=== PATIENT | female | born 1935 | race Caucasian/White ===

== ENCOUNTER 2016-07-01 09:42 | Inpatient (IN) | payer MEDICARE, BC ==
[~2016-07-01] VITALS: Ht 160 cm; Wt 90.7 kg
[2016-07-01] VITALS (9 sets, daily range): BP systolic 109–158; BP diastolic 48–65; PULSE 69–95; TEMP 96.6–98
[~2016-07-01 09:42] MED LIST: ALBUTEROL0.09 MG/A4 IH; ALBUTEROL0.83 MG/ML IH; ALDACTONE 25MG25 M1 PO; AMBIEN 10MG10 MG PO; AMBIEN 5MG TABLE5 MG PO; AMBIEN10 MG PO; AMIODARONE200 MG PO; AMOXICILLIN 50500 MG PO; APRESOLINE 25MG25 MG PO; ASPIRIN 32325 MG/TAB PO; ASPIRIN E.C. 8181 MG PO; ATIVAN 0.50.5 MG/TAB PO; BROVANA15 MCG/2 M IH; BYSTOLIC2.5 MG PO; CALCIUM + D 6001 TAB PO; CALCIUM 1200 601 SGL PO; CAPOTEN 12.512.5 MG PO; CAPOTEN 25MG25 MG; CARDI-OMEGA1000 MG PO; CARDIZEM CD 18180 MG PO; CENTRUM SILVER1 CTB PO; CENTRUM SILVER1 TA1 PO; CENTRUM1 TAB PO; CIPRO 250MG TA250 MG PO; COLACE 100100 MG/CAP PO; CORDARONE200 MG PO; CORDARONE200 MG/TAB PO; COREG 25MG25 MG/TAB PO; COREG12.5 MG PO; COREG6.25 MG PO; COUMADIN 1MG1 MG/TAB PO; COUMADIN 3MG3 MG/TAB PO; COUMADIN 5MG5 MG/TAB PO; COUMADIN3 MG PO; COUMADIN4 MG PO; DEMADEX 20MG20 M1 PO; DIGOXIN PO; DIGOXIN0.125 MG PO; DILTIAZEM180 MG PO; DIOVAN160 M1 PO; DIOVAN160 MG PO; DIOVAN80 MG PO; FLECAINIDE; FLECAINIDE PO; FLECAINIDE150 MG PO; FORTEO250 MCG/ML SC; FOSAMAX 70MG TA70 MG PO; FOSAMAX70 MG PO; FUROSEMIDE40 MG PO; GABAPENTIN300 MG PO; HCTZ 25MG25 MG PO; HYDROCHLOR50 MG PO; HYDROCHLOROTHIA25 MG PO; HYDROCORTISO28.35 G1 TP; IMODIUM 2MG CAPS2 MG PO; LANOXIN 0.120.125 MG PO; LASIX 20MG TABL20 MG PO; LEVOTHYROXIN0.112 MG PO; LEVOTHYROXIN0.125 MG PO; LEVOTHYROXINE PO; LIDOCAINE PATCH 5% ID; LIDODERM PATCH TP; LIPITOR 40MG TA40 MG PO; LIPITOR20 MG PO; LISINOPRIL; LISINOPRIL40 MG PO; LORAZEPAM0.5 MG PO; LORTAB 5/500 501 TAB PO; MAGNESIUM OXID400 MG PO; MILK OF MA400 MG/51 PO; MILK OF MAGNESI30 ML PO; MILLIPRED DP5 MG PO; MIRALAX PA17 GM/Dose PO; MULTAQ400 MG PO; MYLANTA 150 ML150 M1 PO; NITRO-DUR0.4 MG/PAT TD; NORCO 325 MG-51 TAB PO; NORCO 325 MG-7.1 TAB PO; OCCUVITE; OCUVITE PO; OCUVITE1 TA1 PO; OMEGA 31000 MG PO; OMEPRAZOLE40 MG PO; OXYCODONE15 MG PO; PAXIL 10MG10 MG PO; PAXIL 20MG20 MG PO; PAXIL10 MG PO; PERCOCET 325 MG1 TA2 PO; POTASSIUM20 MEQ PO; PRADAXA75 MG PO; PREDNISONE 10MG10 MG PO; PREDNISONE 5MG5 MG PO; PREDNISONE1 MG PO; PREDNISONE10 M1 PO; PREDNISONE10 MG PO; PREDNISONE20 MG PO; PRILOSEC 20MG20 MG PO; PRILOSEC40 MG PO; PRINIVIL40 MG PO; PROAIR HFA0.09 MG/AC IH; PROMETHAZINE12.5 M5 PO; PROTONIX 40MG T40 MG PO; RT ADVAIR HFA 1112 G IH; RT SPIRIVA18 MCG IH; SALINE SOLUTION3 M1 IH; SYNTHROID0.125 MG/T PO; THYROID; TUMS 5001250 MG PO; TYLENOL 500MG500 MG PO; ULTRAM 50MG TAB50 MG PO; VITAMIN; VITAMIN D50000 IU PO; VYTORIN; VYTORIN 10 MG-21 TAB PO; VYTORIN 10 MG-41 TAB PO; WARFARIN SODIU7.5 MG PO; WELLBUTRIN SR150 M1 PO; XARELTO20 MG PO; XOPENEX HF0.045 MG/A IH; ZESTRIL 20MG TA20 MG PO; ZITHROMAX 250M250 MG PO; ZOFRAN 4MG T4 MG/TAB PO; [UNRECOGNIZED DRUG - CODE] PO
[2016-07-01 10:25] LABS: BASO # 0.1 (0.0-0.2); BASO % 0.6 % (0.0-2.0); EOS # 0.3 (0.0-0.7); EOS % 3.4 % (0-4.0); GRAN % 73.4 % (42.2-75.2); HEMATOCRIT 38.2 % (37.0-47.0); HEMOGLOBIN 12.7 g/dl (12.5-16.0); LYMPH # 1.3 (1.2-3.4); LYMPH % 13.4 % (20.0-51.0); MEAN CELL VOLUME 92 fl (80.0-100.0); MEAN CORPUSCULAR HEMOGLOBIN 31 pg (27.0-31.0); MEAN CORPUSCULAR HGB CONC 33 g/dl (33.0-37.0); MONO # 0.8 (0.1-0.6); MONO % 8.1 % (1.7-9.3); PLATELET COUNT 252 K/mm3 (130-400); RED BLOOD COUNT 4.16 M/mm3 (4.10-5.30); REDCELL DISTRIBUTION WIDTH-CV 14.2 % (11.5-14.5); WHITE BLOOD COUNT 9.5 K/mm3 (4.8-10.8)
[2016-07-01 10:37] LABS: ADJUSTED CALCIUM 9.6 mg/dL (8.4-10.2); ALBUMIN 3.5 gm/dL (3.5-5.0); BILIRUBIN,TOTAL 0.9 mg/dL (0.0-1.0); CALCIUM 9.2 mg/dL (8.4-10.2); CREATININE, serum 1.39 mg/dL (0.52-1.25); POTASSIUM 5.1 mmol/L (3.4-5.0); TOTAL PROTEIN 6.3 gm/dL (6.4-8.2)
[2016-07-01] MEDS ORDERED: ALMACONE 360 M360 ML PO (13:02)
[2016-07-01] MEDS ORDERED: MILK OF MA400 MG/52 PO (13:03)
[2016-07-01] MEDS ORDERED: DEMADEX 20MG20 M1 PO (13:07)
[2016-07-01] MEDS ORDERED: ZESTRIL2.5 MG PO (13:16)
[2016-07-01] MEDS ORDERED: FOSAMAX 70MG TA70 MG PO (13:17)
[2016-07-01] MEDS ORDERED: ELIQUIS 5MG PO (13:17)
[2016-07-01] MEDS ORDERED: NEURONTIN300 MG/CAP PO (13:18)
[2016-07-01] MEDS ORDERED: MELAT3MGTAB PO (13:23)
[2016-07-01] MEDS ORDERED: XOPENEX HF0.045 MG/A IH (13:23)
[2016-07-01 15:40] LABS: INR 1.2 (0.8-3.0); PROTHROMBIN TIME 13.8 SECONDS (9.7-12.8)
[2016-07-02 01:07] VITALS: BP 118/42; PULSE 68; TEMP 97.2
[2016-07-02 05:28] VITALS: BP 120/47; PULSE 73; TEMP 97.9
[2016-07-02 08:53] VITALS: BP 104/46; PULSE 71; TEMP 97.7
[2016-07-02 09:10] LABS: CREATININE, serum 1.48 mg/dL (0.52-1.25)
[2016-07-02 13:23] VITALS: BP 91/43; PULSE 73; TEMP 97.8
[2016-07-02 17:53] VITALS: BP 82/63; PULSE 89; TEMP 98.2
[2016-07-02 21:21] VITALS: BP 84/64; PULSE 71; TEMP 99
[2016-07-03] VITALS (8 sets, daily range): BP systolic 80–110; BP diastolic 37–73; PULSE 60–90; TEMP 97.5–100.5
[2016-07-03 07:31] LABS: CREATININE, serum 2.28 mg/dL (0.52-1.25); POTASSIUM 4.6 mmol/L (3.4-5.0)
[2016-07-03 10:47] LABS: HEMATOCRIT 29.7 % (37.0-47.0); HEMOGLOBIN 9.5 g/dl (12.5-16.0)
[2016-07-03 12:49] LABS: PH 5 (5-8); SQUAMOUS EPITHELIAL 0-2 /hpf; URINE APPEARANCE Cloudy; URINE BACTERIA Rare /hpf; URINE BILIRUBIN Negative (NEGATIVE); URINE BLOOD 2+ (NEGATIVE); URINE COLOR Yellow; URINE GLUCOSE Negative (NEGATIVE); URINE KETONE Negative (NEGATIVE); URINE UROBILINOGEN Negative (NEGATIVE); URINE WBC >50 /hpf
[2016-07-04 06:10] VITALS: BP 120/61; PULSE 73; TEMP 99.1
[2016-07-04 07:50] LABS: BASO % 0.3 % (0.0-2.0); EOS # 0.5 (0.0-0.7); EOS % 4.9 % (0-4.0); GRAN # 7.1 (1.4-6.5); LYMPH # 1.2 (1.2-3.4); LYMPH % 11.8 % (20.0-51.0); MEAN CELL VOLUME 93 fl (80.0-100.0); MEAN CORPUSCULAR HGB CONC 33 g/dl (33.0-37.0); MEAN PLATELET VOLUME 10.8 fl (7.4-10.4); MONO # 1.1 (0.1-0.6); MONO % 11.1 % (1.7-9.3); PLATELET COUNT 153 K/mm3 (130-400); RED BLOOD COUNT 2.92 M/mm3 (4.10-5.30); REDCELL DISTRIBUTION WIDTH-CV 14.2 % (11.5-14.5); WHITE BLOOD COUNT 10.1 K/mm3 (4.8-10.8)
[2016-07-04 07:58] LABS: CALCIUM 8.1 mg/dL (8.4-10.2); CREATININE, serum 1.58 mg/dL (0.52-1.25); POTASSIUM 4.7 mmol/L (3.4-5.0)
[2016-07-04 08:00] LABS: HEMATOCRIT 27.1 % (37.0-47.0); HEMOGLOBIN 8.9 g/dl (12.5-16.0); MEAN CORPUSCULAR HEMOGLOBIN 30 pg (27.0-31.0)
[2016-07-04 09:21] VITALS: BP 119/43; PULSE 73; TEMP 98.1
[2016-07-04 13:08] VITALS: BP 98/36; PULSE 64; TEMP 97.9
[2016-07-04 17:44] VITALS: BP 118/50; PULSE 63; TEMP 98.2
[2016-07-04 21:48] VITALS: BP 123/49; PULSE 59; TEMP 97.7
[2016-07-05 01:08] VITALS: BP 106/47; PULSE 78; TEMP 98.6
[2016-07-05 05:04] VITALS: BP 145/59; PULSE 74; TEMP 98.9
[2016-07-05 08:32] LABS: CALCIUM 8.5 mg/dL (8.4-10.2); CREATININE, serum 1.27 mg/dL (0.52-1.25); POTASSIUM 4.7 mmol/L (3.4-5.0)
[2016-07-05 09:25] VITALS: BP 110/40; PULSE 68; TEMP 97.9
[2016-07-05 10:37] LABS: MEAN CELL VOLUME 94 fl (80.0-100.0); MEAN CORPUSCULAR HGB CONC 32 g/dl (33.0-37.0); MEAN PLATELET VOLUME 11.3 fl (7.4-10.4); PLATELET COUNT 188 K/mm3 (130-400); RED BLOOD COUNT 2.81 M/mm3 (4.10-5.30); REDCELL DISTRIBUTION WIDTH-CV 14.3 % (11.5-14.5); WHITE BLOOD COUNT 8.8 K/mm3 (4.8-10.8)
[2016-07-05 10:40] LABS: HEMATOCRIT 26.3 % (37.0-47.0); HEMOGLOBIN 8.5 g/dl (12.5-16.0); MEAN CORPUSCULAR HEMOGLOBIN 30 pg (27.0-31.0)
[2016-07-05] MEDS ORDERED: FERROUS SU325 MG/TAB PO (10:59)
[2016-07-05] MEDS ORDERED: NORCO 325 MG-7.1 TAB PO (11:06)
[2016-07-05 13:33] VITALS: BP 107/53; PULSE 85; TEMP 98.1
[2016-07-05 14:54] VITALS: BP 107/53; PULSE 85; TEMP 98.1
== END 2016-07-05 15:50 | DRG 493 ==
LOC: COL.ER 09:42 → SURG 12:05
PROVIDERS: Emergency Medicine; Internal Medicine; Orthopaedic Surgery Sports Medicine; Physician Assistant
PROC: 0QSG04Z Reposition Right Tibia with Internal Fixation Device, Open Approach (ICD-10-PCS; 2016-07-01)
PROC: 0QSJ04Z Reposition Right Fibula with Internal Fixation Device, Open Approach (ICD-10-PCS; principal; 2016-07-01 17:00)
DX: S82.841A Displaced bimalleolar fracture of right lower leg, initial encounter for closed fracture (principal); I13.0 Hypertensive heart and chronic kidney disease with heart failure and stage 1 through stage 4 chronic kidney disease, or unspecified chronic kidney disease; N39.0 Urinary tract infection, site not specified; M97.11XA Periprosthetic fracture around internal prosthetic right knee joint, initial encounter; I50.22 Chronic systolic (congestive) heart failure; N17.9 Acute kidney failure, unspecified; E87.1 Hypo-osmolality and hyponatremia; D62 Acute posthemorrhagic anemia; S82.831A Other fracture of upper and lower end of right fibula, initial encounter for closed fracture; B96.5 Pseudomonas (aeruginosa) (mallei) (pseudomallei) as the cause of diseases classified elsewhere; I25.10 Atherosclerotic heart disease of native coronary artery without angina pectoris; J44.9 Chronic obstructive pulmonary disease, unspecified; W01.0XXA Fall on same level from slipping, tripping and stumbling without subsequent striking against object, initial encounter; I48.91 Unspecified atrial fibrillation; N18.9 Chronic kidney disease, unspecified; Z95.2 Presence of prosthetic heart valve; Z79.01 Long term (current) use of anticoagulants
CPT/HCPCS: 99223; 99232-AI; 99233-AI; 99239; A9284; C1713; J0690; J0696; J2250; J2270; J2370; J2405; J2704; J3010; J7030

== ENCOUNTER → 2016-07-06 | Outpatient (CLI) | payer MEDICARE, BC ==
[~2016-07-06] MED LIST changes: +ALMACONE 360 M360 ML PO; +CALTRATE-600 W600 MG PO; +DULCOLAX S10 MG/SUPP RC; +ELIQUIS 5MG PO; +FERROUS SU325 MG/TAB PO; +IMODIUM A-D2 MG PO; +MELAT3MGTAB PO; +MILK OF MA400 MG/52 PO; +NEURONTIN300 MG/CAP PO; +TYLENOL 325MG325 MG PO; +TYLENOL SU650 MG/SUP RC; +ZESTRIL2.5 MG PO
[2016-07-06 11:25] LABS: CALCIUM 8.9 mg/dL (8.4-10.2); CREATININE, serum 1.37 mg/dL (0.52-1.25); MEAN CELL VOLUME 93 fl (80.0-100.0); MEAN CORPUSCULAR HGB CONC 33 g/dl (33.0-37.0); MEAN PLATELET VOLUME 11.1 fl (7.4-10.4); PLATELET COUNT 254 K/mm3 (130-400); POTASSIUM 5.1 mmol/L (3.4-5.0); RED BLOOD COUNT 2.85 M/mm3 (4.10-5.30); REDCELL DISTRIBUTION WIDTH-CV 14.3 % (11.5-14.5); WHITE BLOOD COUNT 10.2 K/mm3 (4.8-10.8)
[2016-07-06 11:30] LABS: ADD PATHOLOGY DIFF REVIEW NO; HEMATOCRIT 26.6 % (37.0-47.0); HEMOGLOBIN 8.7 g/dl (12.5-16.0); MEAN CORPUSCULAR HEMOGLOBIN 31 pg (27.0-31.0)
[2016-07-06 12:53] LABS: BAND 9 % (0-10); BASOPHIL 3 % (0-2); EOSINOPHIL 4 % (0-4); METAMYELOCYTE 2 % (0-0); MYELOCYTE 2 % (0-0); NEUTROPHILS 48 % (42.0-75.2); PLATELET ESTIMATE NORMAL (NORMAL); TOTAL CELLS COUNTED 100
[2016-07-06 12:54] LABS: ANISOCYTOSIS 1+; OVALOCYTES 1+; POLYCHROMASIA 1+
== END ==
LOC: ZCOL.LAB 09:58
PROVIDERS: Internal Medicine
DX: E87.1 Hypo-osmolality and hyponatremia (principal); N39.0 Urinary tract infection, site not specified

== ENCOUNTER 2016-07-12 09:55 | Inpatient (IN) | payer MEDICARE, BC ==
[~2016-07-12] VITALS: Ht 160 cm; Wt 88.9 kg
[~2016-07-12 09:55] MED LIST changes: -CALTRATE-600 W600 MG PO; -DULCOLAX S10 MG/SUPP RC; -IMODIUM A-D2 MG PO; -TYLENOL 325MG325 MG PO; -TYLENOL SU650 MG/SUP RC
[2016-07-12] MEDS ORDERED: DULCOLAX S10 MG/SUPP RC (11:14)
[2016-07-12] MEDS ORDERED: TYLENOL SU650 MG/SUP RC (11:15)
[2016-07-12] MEDS ORDERED: IMODIUM A-D2 MG PO (11:18)
[2016-07-12] MEDS ORDERED: TYLENOL 325MG325 MG PO ×2 (11:18→12:09)
[2016-07-12] MEDS ORDERED: FERROUS SU325 MG/TAB PO (11:19)
[2016-07-12] MEDS ORDERED: MIRALAX PA17 GM/Dose PO (11:21)
[2016-07-12] MEDS ORDERED: DEMADEX 20MG20 M1 PO (11:22)
[2016-07-12] MEDS ORDERED: NORCO 325 MG-7.1 TAB PO (11:23)
[2016-07-12 13:36] LABS: MEAN CELL VOLUME 95 fl (80.0-100.0); MEAN CORPUSCULAR HGB CONC 32 g/dl (33.0-37.0); MEAN PLATELET VOLUME 9.2 fl (7.4-10.4); PLATELET COUNT 375 K/mm3 (130-400); REDCELL DISTRIBUTION WIDTH-CV 16.5 % (11.5-14.5); WHITE BLOOD COUNT 11.1 K/mm3 (4.8-10.8)
[2016-07-12 13:39] LABS: ADD PATHOLOGY DIFF REVIEW NO; HEMATOCRIT 29.4 % (37.0-47.0); HEMOGLOBIN 9.5 g/dl (12.5-16.0); MEAN CORPUSCULAR HEMOGLOBIN 31 pg (27.0-31.0)
[2016-07-12 15:20] VITALS: BP 118/56; PULSE 72; TEMP 98
[2016-07-12 18:08] LABS: BAND 4 % (0-10); EOSINOPHIL 1 % (0-4); METAMYELOCYTE 1 % (0-0); NEUTROPHILS 68 % (42.0-75.2); TOTAL CELLS COUNTED 100
[2016-07-12 18:09] LABS: ANISOCYTOSIS 2+; HYPOCHROMIA 3+; POLYCHROMASIA 1+
[2016-07-12 20:25] VITALS: BP 128/59; PULSE 55; TEMP 97.6
[2016-07-12 23:38] VITALS: BP 100/87; PULSE 71; TEMP 97.7
[2016-07-13 02:56] VITALS: BP 112/42; PULSE 69; TEMP 97.4
[2016-07-13 07:36] LABS: CALCIUM 8.8 mg/dL (8.4-10.2); CREATININE, serum 1.42 mg/dL (0.52-1.25); POTASSIUM 3.9 mmol/L (3.4-5.0)
[2016-07-13 09:13] VITALS: BP 112/90; PULSE 71; TEMP 97.8
[2016-07-13 12:13] VITALS: BP 118/37; PULSE 71; TEMP 98
[2016-07-13 16:21] VITALS: BP 122/48; PULSE 68; TEMP 98.4
[2016-07-13 20:23] VITALS: BP 119/42; PULSE 69; TEMP 98.2
[2016-07-14 00:11] VITALS: BP 114/50; PULSE 66; TEMP 98.6
[2016-07-14 03:32] VITALS: BP 101/48; PULSE 68; TEMP 97.8
[2016-07-14 07:49] LABS: CALCIUM 8.7 mg/dL (8.4-10.2); CREATININE, serum 1.65 mg/dL (0.52-1.25); POTASSIUM 3.6 mmol/L (3.4-5.0)
[2016-07-14 08:29] VITALS: BP 103/45; PULSE 69; TEMP 97.6
[2016-07-14 11:36] VITALS: BP 112/48; PULSE 71; TEMP 98.4
[2016-07-14 16:10] VITALS: BP 105/80; PULSE 74; TEMP 7.8
[2016-07-14 20:06] VITALS: BP 135/58; PULSE 71; TEMP 98.6
[2016-07-15] VITALS (554 sets, daily range): BP systolic 106–134; BP diastolic 40–96; PULSE 69–92; TEMP 97.7–98.3; O2SAT 84–100
[2016-07-15 06:24] LABS: CALCIUM 8.4 mg/dL (8.4-10.2); CREATININE, serum 1.54 mg/dL (0.52-1.25); POTASSIUM 3.8 mmol/L (3.4-5.0)
[2016-07-15 10:22] LABS: HEMATOCRIT 34.1 % (37.0-47.0)
[2016-07-15 10:54] LABS: HEMOGLOBIN 11.1 g/dl (12.5-16.0)
[2016-07-16] VITALS (1136 sets, daily range): BP systolic 111–137; BP diastolic 45–66; PULSE 69–70; TEMP 97.5–97.9; O2SAT 82–100
[2016-07-16 06:16] LABS: CALCIUM 8.6 mg/dL (8.4-10.2); CREATININE, serum 1.67 mg/dL (0.52-1.25); POTASSIUM 3.8 mmol/L (3.4-5.0)
[2016-07-17] VITALS (911 sets, daily range): BP systolic 105–122; BP diastolic 43–57; PULSE 60–69; TEMP 97.4–97.7; O2SAT 78–100
[2016-07-17 06:40] LABS: CALCIUM 8.8 mg/dL (8.4-10.2); CREATININE, serum 1.59 mg/dL (0.52-1.25); POTASSIUM 3.8 mmol/L (3.4-5.0)
[2016-07-17] MEDS ORDERED: CALTRATE-600 W600 MG PO (15:07)
[2016-07-17] MEDS ORDERED: DEMADEX 20MG20 M1 PO (15:08)
== END 2016-07-17 16:25 | DRG 293 ==
LOC: MEDICAL 09:55 → IMCU 07-15 08:25 → ICU 07-15 18:35
PROVIDERS: Internal Medicine Interventional Cardiology
PROC: 02HV33Z Insertion of Infusion Device into Superior Vena Cava, Percutaneous Approach (ICD-10-PCS; principal; 2016-07-12)
DX: I11.0 Hypertensive heart disease with heart failure (principal); I50.43 Acute on chronic combined systolic (congestive) and diastolic (congestive) heart failure; Z95.810 Presence of automatic (implantable) cardiac defibrillator; I48.0 Paroxysmal atrial fibrillation; Z95.2 Presence of prosthetic heart valve; D64.9 Anemia, unspecified; I25.10 Atherosclerotic heart disease of native coronary artery without angina pectoris
CPT/HCPCS: C1751; J1265; J1644

== ENCOUNTER → 2016-08-08 | Outpatient (CLI) | payer MEDICARE, BC ==
[~2016-08-08] MED LIST changes: +CALTRATE-600 W600 MG PO; +DULCOLAX S10 MG/SUPP RC; +IMODIUM A-D2 MG PO; +TYLENOL 325MG325 MG PO; +TYLENOL SU650 MG/SUP RC
== END ==
LOC: COL.RAD 09:50
DX: S82.51XD Displaced fracture of medial malleolus of right tibia, subsequent encounter for closed fracture with routine healing (principal); X58.XXXD Exposure to other specified factors, subsequent encounter

== ENCOUNTER → 2016-08-13 | Outpatient (REF) | LOC: ZAIV 06:20 | DX: Z09 Encounter for follow-up examination after completed treatment for conditions other than malignant neoplasm (principal) ==

== ENCOUNTER → 2017-03-11 | Outpatient (CLI) | payer MEDICARE, BC | LOC: MC.RAD 11:00 | DX: Z12.31 Encounter for screening mammogram for malignant neoplasm of breast (principal) ==

== ENCOUNTER 2017-04-19 12:31 | Day surgery (SDC) | payer MEDICARE, BC ==
[2009-05-02 09:24] VITALS: BP 142/90
[2017-04-19] VITALS (7 sets, daily range): BP systolic 98–115; BP diastolic 39–63; PULSE 68–72; TEMP 96.6–98.1
[~2017-04-19] VITALS: Ht 167.6 cm; Wt 84.1 kg
[2017-04-19] MEDS ORDERED: AMBIEN 5MG TABLE5 MG PO (13:17)
[2017-04-19] MEDS ORDERED: DEMADEX 20MG20 M1 PO (13:18)
[2017-04-19] MEDS ORDERED: SYNTHROID0.112 MG/T PO (13:21)
[2017-04-19] MEDS ORDERED: ATARAX 25MG25 MG/TAB PO (13:24)
[2017-04-19] MEDS ORDERED: AMOXICILLIN 50500 MG PO (13:25)
[2017-04-19] MEDS ORDERED: ATROVENT I0.2 MG/1 M IH (13:26)
[2017-04-19] MEDS ORDERED: ATIVAN 0.50.5 MG/TAB PO (13:26)
[2017-04-19] MEDS ORDERED: VOLTAREN GEL 1%1 TU TP (13:26)
[2017-04-19] MEDS ORDERED: GOOD SENSE ANTI-IT1% TP (13:27)
[2017-04-19] MEDS ORDERED: MUCINEX 60600 MG/TA1 PO (13:27)
[2017-04-19] MEDS ORDERED: ICY HOT 7.6%-291 STI TP (13:27)
[2017-04-19] MEDS ORDERED: ROBITUSSIN A-C S1 M1 PO (13:28)
[2017-04-19] MEDS ORDERED: PREPH RC (13:28)
[2017-04-19] MEDS ORDERED: TYLENOL 500MG500 MG PO (13:29)
== END 2017-04-19 16:30 | disposition home or self-care (01) ==
LOC: SDCO 12:31
DX: S82.841D Displaced bimalleolar fracture of right lower leg, subsequent encounter for closed fracture with routine healing (principal); D64.9 Anemia, unspecified; M19.90 Unspecified osteoarthritis, unspecified site; I13.0 Hypertensive heart and chronic kidney disease with heart failure and stage 1 through stage 4 chronic kidney disease, or unspecified chronic kidney disease; N18.9 Chronic kidney disease, unspecified; I50.9 Heart failure, unspecified; I25.10 Atherosclerotic heart disease of native coronary artery without angina pectoris; I48.91 Unspecified atrial fibrillation; J44.9 Chronic obstructive pulmonary disease, unspecified; E78.00 Pure hypercholesterolemia, unspecified; E03.9 Hypothyroidism, unspecified; F41.9 Anxiety disorder, unspecified; G47.33 Obstructive sleep apnea (adult) (pediatric); G89.18 Other acute postprocedural pain; Z79.01 Long term (current) use of anticoagulants; Z95.810 Presence of automatic (implantable) cardiac defibrillator; Z96.653 Presence of artificial knee joint, bilateral; Z95.0 Presence of cardiac pacemaker; Z90.5 Acquired absence of kidney; Z90.710 Acquired absence of both cervix and uterus; Z85.528 Personal history of other malignant neoplasm of kidney; Z86.73 Personal history of transient ischemic attack (TIA), and cerebral infarction without residual deficits; Z80.0 Family history of malignant neoplasm of digestive organs; Z82.49 Family history of ischemic heart disease and other diseases of the circulatory system
CPT/HCPCS: J0690; J1100; J2250; J2405; J2704; J3010; J7030

== ENCOUNTER 2017-06-11 10:34 | Inpatient (IN) | payer MEDICARE, BC ==
[~2017-06-11] VITALS: Ht 165.1 cm; Wt 86.6 kg
[~2017-06-11 10:34] MED LIST changes: +ATARAX 25MG25 MG/TAB PO; +ATROVENT I0.2 MG/1 M IH; +GOOD SENSE ANTI-IT1% TP; +ICY HOT 7.6%-291 STI TP; +MUCINEX 60600 MG/TA1 PO; +PREPH RC; +ROBITUSSIN A-C S1 M1 PO; +SYNTHROID0.112 MG/T PO; +VOLTAREN GEL 1%1 TU TP
[2017-06-16 14:34] VITALS: BP 127/62; PULSE 73; TEMP 97.4
[2017-06-16] MEDS ORDERED: MYRBETR25MG PO (15:00)
[2017-06-16 19:03] LABS: HEMATOCRIT 41.5 % (37.0-47.0); HEMOGLOBIN 14.1 g/dl (12.5-16.0); MEAN CELL VOLUME 92 fl (80.0-100.0); MEAN CORPUSCULAR HEMOGLOBIN 31 pg (27.0-31.0); MEAN CORPUSCULAR HGB CONC 34 g/dl (33.0-37.0); MEAN PLATELET VOLUME 10.5 fl (7.4-10.4); PLATELET COUNT 220 K/mm3 (130-400)
[2017-06-16 19:13] LABS: CALCIUM 9.3 mg/dL (8.4-10.2); CREATININE, serum 2.01 mg/dL (0.52-1.25); POTASSIUM 4.2 mmol/L (3.4-5.0)
[2017-06-16 19:38] LABS: TROPONIN-I 0.018 ng/mL (0.000-0.034)
[2017-06-16 20:57] VITALS: BP 112/51; PULSE 66; TEMP 98.6
[2017-06-16 21:50] LABS: INR 1.5 (0.8-3.0); PROTHROMBIN TIME 17.2 SECONDS (9.7-12.8)
[2017-06-17] VITALS (12 sets, daily range): BP systolic 96–128; BP diastolic 45–73; PULSE 50–82; TEMP 9
[2017-06-17 07:28] LABS: CALCIUM 9.5 mg/dL (8.4-10.2); CREATININE, serum 1.94 mg/dL (0.52-1.25)
[2017-06-17 07:29] LABS: POTASSIUM 3.8 mmol/L (3.4-5.0)
[2017-06-18 04:00] VITALS: BP 97/50; PULSE 72; TEMP 97.8
[2017-06-18 07:16] LABS: HEMATOCRIT 32.9 % (37.0-47.0); HEMOGLOBIN 11.2 g/dl (12.5-16.0)
[2017-06-18 07:29] VITALS: BP 107/56; PULSE 70; TEMP 97.2
[2017-06-18 11:31] VITALS: BP 101/46; PULSE 69; TEMP 98.1
[2017-06-18 15:32] VITALS: BP 84/34; PULSE 69; TEMP 97.8
[2017-06-18 19:24] VITALS: BP 96/45; PULSE 69; TEMP 99.1
[2017-06-18 23:55] VITALS: BP 96/34; PULSE 58; TEMP 98.5
[2017-06-19 04:00] VITALS: BP 103/44; PULSE 69; TEMP 98.7
[2017-06-19 07:02] LABS: HEMATOCRIT 30.6 % (37.0-47.0); HEMOGLOBIN 10.3 g/dl (12.5-16.0)
[2017-06-19 07:54] VITALS: BP 93/46; PULSE 73; TEMP 98
[2017-06-19] MEDS ORDERED: ELIQUIS 2.5 PO (08:36)
[2017-06-19 09:47] VITALS: BP 93/46; PULSE 73; TEMP 98
[2017-06-19 11:30] VITALS: BP 92/43; PULSE 69; TEMP 97.5
[2017-06-19] MEDS ORDERED: NORCO 325 MG-7.1 TAB PO (13:59)
[2017-06-19] MEDS ORDERED: ULTRAM 50MG TAB50 MG PO (14:00)
[2017-06-19] MEDS ORDERED: CELEBREX 200MG200 MG PO (14:00)
== END 2017-06-19 14:40 | disposition home or self-care (01) | DRG 516 ==
LOC: JCC 06-16 14:19
PROVIDERS: Internal Medicine Interventional Cardiology; Orthopaedic Surgery; Physician Assistant
PROC: 0SU Lower Joints, Supplement (ICD-10-PCS; principal; 2017-06-17 07:30)
DX: M19.072 Primary osteoarthritis, left ankle and foot (principal); I50.42 Chronic combined systolic (congestive) and diastolic (congestive) heart failure; I48.2 Chronic atrial fibrillation; Z95.810 Presence of automatic (implantable) cardiac defibrillator; Z96.653 Presence of artificial knee joint, bilateral; Z95.2 Presence of prosthetic heart valve
CPT/HCPCS: A4314; A9284; C1713; C1776; J0690; J1100; J1170; J1644; J2270; J2405; J2704; J3010

== ENCOUNTER → 2017-06-24 | Outpatient (REF) ==
[~2017-06-24] MED LIST changes: +CELEBREX 200MG200 MG PO; +ELIQUIS 2.5 PO; +MYRBETR25MG PO
[2017-06-24 08:48] LABS: CALCIUM 9.1 mg/dL (8.4-10.2); CREATININE, serum 2.02 mg/dL (0.52-1.25); POTASSIUM 5.1 mmol/L (3.4-5.0)
== END ==
LOC: ZCOL.LAB 08:31
PROVIDERS: Internal Medicine
DX: I50.22 Chronic systolic (congestive) heart failure (principal)

== ENCOUNTER → 2017-06-27 | Outpatient (CLI) | payer MEDICARE, BC ==
[2017-06-27 17:07] LABS: MEAN CELL VOLUME 94 fl (80.0-100.0); MEAN CORPUSCULAR HGB CONC 34 g/dl (33.0-37.0); MEAN PLATELET VOLUME 9.6 fl (7.4-10.4); PLATELET COUNT 273 K/mm3 (130-400); RED BLOOD COUNT 2.97 M/mm3 (4.10-5.30); REDCELL DISTRIBUTION WIDTH-CV 13.1 % (11.5-14.5)
[2017-06-27 17:15] LABS: HEMATOCRIT 27.9 % (37.0-47.0); HEMOGLOBIN 9.5 g/dl (12.5-16.0); MEAN CORPUSCULAR HEMOGLOBIN 32 pg (27.0-31.0)
[2017-06-27 17:16] LABS: CREATININE, serum 2.38 mg/dL (0.52-1.25); POTASSIUM 5.7 mmol/L (3.4-5.0)
== END ==
LOC: COL.RAD 16:27
PROVIDERS: Internal Medicine Interventional Cardiology
DX: I51.7 Cardiomegaly (principal); R06.02 Shortness of breath; Z95.810 Presence of automatic (implantable) cardiac defibrillator; Z95.2 Presence of prosthetic heart valve

== ENCOUNTER → 2018-06-17 | Outpatient (CLI) | payer MEDICARE, BC | LOC: MC.RAD 10:20 | DX: Z12.31 Encounter for screening mammogram for malignant neoplasm of breast (principal) ==

== ENCOUNTER 2018-11-10 22:22 | Emergency (ER) | payer MEDICARE, BC ==
[2009-05-02 09:24] VITALS: BP 142/90
[2018-11-10 22:39] VITALS: TEMP 98.1
[2018-11-10 23:47] LABS: BASO # 0.1 (0.0-0.2); BASO % 0.5 % (0.0-2.0); EOS # 0.4 (0.0-0.7); EOS % 2.5 % (0-4.0); GRAN # 12.1 (1.4-6.5); GRAN % 82.8 % (42.2-75.2); HEMATOCRIT 42.6 % (37.0-47.0); LYMPH # 1.1 (1.2-3.4); LYMPH % 7.2 % (20.0-51.0); MEAN CELL VOLUME 91 fl (80.0-100.0); MEAN CORPUSCULAR HEMOGLOBIN 30 pg (27.0-31.0); MEAN CORPUSCULAR HGB CONC 33 g/dl (33.0-37.0); MEAN PLATELET VOLUME 11.2 fl (7.4-10.4); MONO # 0.9 (0.1-0.6); MONO % 5.8 % (1.7-9.3); PLATELET COUNT 224 K/mm3 (130-400); RED BLOOD COUNT 4.67 M/mm3 (4.10-5.30)
[2018-11-11 00:02] LABS: ALANINE AMINOTRANSFERASE < 6 U/L (9-52); ALBUMIN 3.8 gm/dL (3.5-5.0); ALKALINE PHOSPHATASE 109 U/L (50-136); ANION GAP 10 mmol/L (7-16); AST,SGOT 26 U/L (15-37); BILIRUBIN,TOTAL 0.6 mg/dL (0.0-1.0); BLOOD UREA NITROGEN 24 mg/dL (7-17); CALCIUM 9.4 mg/dL (8.4-10.2); CARBON DIOXIDE 33 mmol/L (22-30); CHLORIDE 99 mmol/L (98-107); GLUCOSE 125 mg/dL (74-106); LIPASE 74 U/L (23-300); POTASSIUM 3.8 mmol/L (3.4-5.0); SODIUM 141 mmol/L (137-145); TOTAL PROTEIN 7.3 gm/dL (6.4-8.2)
[2018-11-11 00:11] LABS: TROPONIN-I 0.013 ng/mL (0.000-0.035)
[2018-11-11 00:31] LABS: COLLECTION METHOD CLEAN CATCH
[2018-11-11 00:39] LABS: PH 7 (5-8); SQUAMOUS EPITHELIAL 0-2 /hpf; URINE APPEARANCE Clear; URINE BACTERIA None Seen /hpf; URINE BILIRUBIN Negative (NEGATIVE); URINE BLOOD Negative (NEGATIVE); URINE COLOR Straw; URINE GLUCOSE Negative (NEGATIVE); URINE KETONE Negative (NEGATIVE); URINE LEUKOCYTE ESTERASE Trace (NEGATIVE); URINE NITRATE Negative (NEGATIVE); URINE PROTEIN(semi-quant) Negative (NEGATIVE); URINE RBC 0-2 /hpf; URINE UROBILINOGEN Negative (NEGATIVE)
[2018-11-11] MEDS ORDERED: CEPHALEXIN500 M1 PO (03:08)
[2018-11-11 03:09] VITALS: BP 152/75; PULSE 85
== END 2018-11-11 03:20 | disposition home or self-care (01) ==
LOC: COL.ER 22:22
PROVIDERS: Emergency Medicine
DX: R10.13 Epigastric pain (principal); I11.0 Hypertensive heart disease with heart failure; R11.0 Nausea; I50.9 Heart failure, unspecified; I48.91 Unspecified atrial fibrillation; E03.9 Hypothyroidism, unspecified; Z95.0 Presence of cardiac pacemaker; Z79.01 Long term (current) use of anticoagulants

== ENCOUNTER → 2020-01-18 | Outpatient (CLI) | payer MEDICARE, BC ==
[~2020-01-18] MED LIST changes: +CEPHALEXIN500 M1 PO
== END ==
LOC: ZCOL.LAB 16:56
DX: Z20.828 Contact with and (suspected) exposure to other viral communicable diseases (principal)

== ENCOUNTER 2023-02-25 15:16 | Inpatient (IN) | payer MEDICARE, BC ==
[~2023-02-25] VITALS: Ht 167.6 cm; Wt 84.3 kg
[~2023-02-25 15:16] MED LIST changes: +ATIVAN 1MG T1 MG/TAB PO; -BYSTOLIC2.5 MG PO; +BYSTOLIC5 MG PO; -GOOD SENSE ANTI-IT1% TP; +HYDROCORTISONE30 G3 TP; -MYRBETR25MG PO; +MYRBETR50MG PO; -PAXIL 20MG20 MG PO; +PAXIL 30MG30 MG PO; -SYNTHROID0.112 MG/T PO
--- NOTE | 2023-02-25 18:14 | NUR ---
PATIENT ADMITTED TO MEDICAL UNIT. ADMISSION INTAKE AND ASSESSMENT COMPLETED. MED REC IN PLACE. PATIENT ORIENTED TO ROOM, CALL LIGHT WITHIN REACH, BED ALARMS IN PLACE. CURRENTLY ON 2L OXYGEN VIA NC. WILL CONTINUE TO MONITOR.
[2023-02-25 18:33] VITALS: BP 97/45; PULSE 78; TEMP 97.8
[2023-02-25] MEDS ORDERED: ANORO IH (18:48)
[2023-02-25] MEDS ORDERED: ZYLOPRIM 100MG100 MG PO (18:48)
[2023-02-25] MEDS ORDERED: ELIQUIS 5MG PO (18:49)
[2023-02-25] MEDS ORDERED: ENTRESTO 24 MG1 EACH PO (18:51)
[2023-02-25 19:14] LABS: INR 1.6 (0.8-3.0); PROTHROMBIN TIME 17.6 SECONDS (9.7-12.8)
[2023-02-25 19:26] LABS: CALCIUM 9.3 mg/dL (8.4-10.2); CREATININE, serum 2.1 mg/dL (0.57-1.11); POTASSIUM 3.3 mmol/L (3.5-4.5)
[2023-02-25 19:33] VITALS: BP 97/85; PULSE 87; TEMP 98.2
[2023-02-25 20:30] VITALS: BP_SYST 112
[2023-02-25 23:04] VITALS: BP 112/51; PULSE 77; TEMP 98.4
[2023-02-25 23:39] LABS: COLLECTION METHOD CLEAN CATCH
[2023-02-26] VITALS (20 sets, daily range): BP systolic 76–119; BP diastolic 28–76; PULSE 51–84; TEMP 97.1–98.6
[2023-02-26 00:14] LABS: PH 6.5 (5.0-8.5); URINE APPEARANCE Clear (CLEAR/HAZY); URINE BLOOD TRACE-INTACT (NEGATIVE); URINE COLOR Yellow (YELLOW); URINE GLUCOSE Negative (NEGATIVE); URINE KETONE Negative (NEGATIVE); URINE NITRATE Negative (NEGATIVE); URINE PROTEIN(semi-quant) Negative (NEGATIVE); URINE UROBILINOGEN 0.2 E.U/dL (0.2-1.0)
[2023-02-26 00:15] LABS: SQUAMOUS EPITHELIAL 0-2 /hpf (0-10); URINE BACTERIA Rare /hpf (NONE SEEN); URINE RBC 0-2 /hpf (0-2)
--- NOTE | 2023-02-26 02:43 | NUR ---
2044- SPOKE WITH DR. HERNANDEZ AND RECEIVED VERBAL ORDERS FOR JARDIAN 10 MG PO ONCE/DAY, EKG, BNP, LOW NA DIET, AND TO MAKE SURE LASIX WAS BID, ORDERS READ BACK AND PLACED INTO PT SYSTEM. PT IS ALERT AND ORIENTED X3, DENIES CHEST PAIN AND REPORTS SHORTNESS OF BREATH WITH EXERTION, SOME WEEZING SOUNDS NOTED INTERMITTENTLY. PATIENT HAS BEEN SWITCHING OFF AND ON BIPAP/CPAP AND NC. SOME NOTICEABLE WEEZING WITH 4 L NC BUT PATIENT STATES THAT BIPAP/CPAP MASK IS "UNCOMFORTABLE, DOESN'T FEEL RIGHT". IN COMMUNICATION WITH RT AND WILL CONTINUE TO MONITOR PT. BLE NONPITTING EDEMA NOTED AND PER PT REQUEST, WILBER HOSE TAKEN OFF FOR NIGHT, BILATERAL UPPER EXTREMITY BRUISING NOTED WELL. GIBSON IS DRAINING CLEAR PAL YELLOW URINE. PATIENT EDUCATED ABOUT NPO STATUS, VERBALLY UNDERSTOOD. IV IN RAC IS PATENT BUT FLUSHES SLOWLY, CLEAN DRY AND INTACT. PT HAS NO FURTHER NEEDS, QUESTIONS, OR CONCERNS AT THIS TIME. CALL LIGHT WITHIN REACH, WILL CONTINUE TO MONITOR.
[2023-02-26 05:43] LABS: BASO % 0.3 % (0.0-2.0); EOS # 0.6 K/mm3 (0.0-0.7); EOS % 4.4 % (0.0-4.0); GRAN % 84.6 % (42.2-75.2); LYMPH # 0.6 K/mm3 (1.2-3.4); LYMPH % 4.3 % (20.0-51.0); MEAN CELL VOLUME 85 fl (80.0-100.0); MEAN CORPUSCULAR HGB CONC 32 g/dl (33.0-37.0); MEAN PLATELET VOLUME 11.5 fl (7.4-10.4); MONO # 0.8 K/mm3 (0.1-0.6); MONO % 5.8 % (1.7-9.3); PLATELET COUNT 183 K/mm3 (130-400); RED BLOOD COUNT 3.29 M/mm3 (4.10-5.30); REDCELL DISTRIBUTION WIDTH-CV 18.8 % (11.5-14.5)
[2023-02-26 05:48] LABS: HEMATOCRIT 27.8 % (37.0-47.0); HEMOGLOBIN 8.9 g/dl (12.5-16.0); MEAN CORPUSCULAR HEMOGLOBIN 27 pg (27-31)
[2023-02-26 05:54] LABS: CALCIUM 9.1 mg/dL (8.4-10.2); CREATININE, serum 2.12 mg/dL (0.57-1.11); POTASSIUM 3.2 mmol/L (3.5-4.5)
[2023-02-26] MEDS ORDERED: MACRODANTIN50 MG/CA1 PO (08:46)
[2023-02-26] MEDS ORDERED: TRELEGY ELLIPT1 EAC1 IH (08:47)
[2023-02-26] MEDS ORDERED: CRANBERRY 4001 EACH PO (08:53)
[2023-02-26] MEDS ORDERED: NITROSTAT0.4 MG/TAB SL (08:55)
[2023-02-26] MEDS ORDERED: IMDUR 30MG30 MG/TAB PO (08:56)
[2023-02-26] MEDS ORDERED: VITAMINC1000TA PO (09:00)
[2023-02-26] MEDS ORDERED: FLORAJEN A20 Billion PO (09:01)
--- NOTE | 2023-02-26 13:40 | NUR ---
Patient been in pleasant mood this shift. Edema noted bilaterally to lower extremities, non-pitting. Bruise noted to right arm near IV site. Patient is alert to self and situation. Currently off unit for LILIA procedure, consent signed by DPOA. Denies pain or discomfort. Urine output adequate, pale yellow/clear. WILBER hose reapplied this morning. 4L O2 running via nasal cannula.
--- NOTE | 2023-02-26 13:50 | NUR ---
Dr. Paiz elects moderate sedation, see Moderate sedation flowsheet for all intraprocedure charting & orders.
--- NOTE | 2023-02-26 13:53 | NUR ---
Patient tolerated procedure well, no airway adjunct needed. See moderate sedation form for all intraprocedure charting.
--- NOTE | 2023-02-26 15:33 | NUR ---
dietary worker attempted to speak with patient but she was asleep. dietary worker contacted [facility], Manuelito Moon, to discuss discharge planning. Manuelito expressed Dr. Paiz informed him the patient would be able to transfer to [facility] in [place] either today or tomorrow for surgery. Manuelito expressed after she is at [facility] she would potentially go to a nursing home facility, [facility]. dietary worker expressed she would speak with the stock house worker as this would be a transfer from their hospital to another and they normally assist with those transfers. Manuelito had no further questions at this time. dietary worker notified Lori, stock house worker, patient's son had been informed patient would be able to get a surgery at [facility] in [place] and they would transfer her there. Discharge Plan: Transfer to [facility] in [place]
--- NOTE | 2023-02-26 16:10 | NUR ---
Patient drowsy following LILIA procedure. Initial post procedure VS 80s/40s, SpO2 100% on 4L, and HR in 50s. Second BP obtained and noted to be 90/45 which is close to patient's baseline. TIFFANY Lerma left patient's room and told this nurse to call if VS became unstable. Next BP reading 70s/40s, re-checked BP three times including two manual BP. TIFFANY Lerma notified of VS change and two factory laborer RNs Dea and Justine arrived to check on patient. Patient put in trendelenburg and BP letty to 80s/50s. Patient arouses to voice, sleeps when left alone. Patient bed re-set to flat with HOB slightly elevated. Dea and Justine from factory laborer monitered patient for two VS post-op cycles. BP increased to 90s/40s, this nurse and factory laborer RNs felt comfortable with patient condition at that time. VS remain stable, last BP reading 103/44. Patient tolerating sips of juice well, denies hunger at this time. Currently resting in bed with call light in reach and fall precautions in place.
--- NOTE | 2023-02-26 18:45 | NUR ---
Patient's BP continues to fluctuate. Orders received from Elmo VERDUGO to do a 500ml bolus of NS. BP remains in 80s/40s, bolus almost complete. Dr. Paiz updated and ordered 1L of fluids at 60ml/hr, hospitalist called to confirm agreement with order. Hospitalist okay with fluid orders. Patient is noted to have wheezes noted to lungs since returning from LILIA. Lung sounds clear this morning. Dr. Paiz aware. Patient is drowsy, arouses to touch and voice. Patient ate 100% of dinner before falling back asleep.
--- NOTE | 2023-02-26 20:00 | NUR ---
Patient resting in bed with family at bedside. Denies any pain at this time. Alert and oriented to self and situation. Assessment complete. IV infusing with no complications. Denies any needs at this time. Call light and personal items in reach. Bed in low position and bed alarm in reach.
[2023-02-27] VITALS (7 sets, daily range): BP systolic 93–96; BP diastolic 37–46; PULSE 72–87; TEMP 97.4–98.1
--- NOTE | 2023-02-27 04:55 | NUR ---
Melida BROKERAGE BRANCH MANAGER, contact and notified of +1 pitting edema in some areas from IVF infusion running at 60mL/hr and BP of 96/37 (MAP 57). Lungs are still clear upon ascultation. No new orders at this time.
--- NOTE | 2023-02-27 05:50 | NUR ---
Patient attempting to get out of bed thinking she needs to go get testing this morning. Informed patient we will come and get her if she needs to go get testing and patient put her legs back in bed. Denies any pain or needs at this time. Call light and personal items in reach. Bed in low position and bed alarm on.
[2023-02-27 05:54] LABS: BASO % 0.4 % (0.0-2.0); EOS # 0.6 K/mm3 (0.0-0.7); EOS % 5.4 % (0.0-4.0); GRAN # 8.3 K/mm3 (1.4-6.5); GRAN % 75.8 % (42.2-75.2); HEMATOCRIT 28.2 % (37.0-47.0); LYMPH # 1.1 K/mm3 (1.2-3.4); LYMPH % 10.3 % (20.0-51.0); MEAN CELL VOLUME 84 fl (80.0-100.0); MEAN CORPUSCULAR HEMOGLOBIN 27 pg (27-31); MEAN CORPUSCULAR HGB CONC 32 g/dl (33.0-37.0); MEAN PLATELET VOLUME 12.1 fl (7.4-10.4); MONO # 0.8 K/mm3 (0.1-0.6); MONO % 7.6 % (1.7-9.3); PLATELET COUNT 197 K/mm3 (130-400); RED BLOOD COUNT 3.34 M/mm3 (4.10-5.30); REDCELL DISTRIBUTION WIDTH-CV 18.7 % (11.5-14.5)
[2023-02-27 06:01] LABS: CALCIUM 9.1 mg/dL (8.4-10.2); CREATININE, serum 1.88 mg/dL (0.57-1.11); POTASSIUM 3.4 mmol/L (3.5-4.5)
--- NOTE | 2023-02-27 09:00 | NUR ---
ASSESSMENT COMPLETED. NOTED SOME PITTING EDEMA TO LOWER EXTREMITIES. PATIENT IS ALERT X2. PATIENT HAS A GIBSON ON YELLOW AND CLEAR. PATIENT BP IN THE 90'S. PATIENT SITTING IN CHAIR AND EATING HER BREAKFAST. CALL LIGHT WITHIN REACH. CHAIR ALARM ON.
--- NOTE | 2023-02-27 10:41 | NUR ---
Initial visit; Patient and her son thanked Business Law Teacher for looking in on her, listening and offring God's blessings.
[2023-02-27] MEDS ORDERED: TRELEGY ELLIPT1 EACH IH (11:31)
--- NOTE | 2023-02-27 13:23 | NUR ---
Rebecca with [facility] calls to check on patient as they provide her care in the home. Worker advised that patient was tranferring to [facility] today.
--- NOTE | 2023-02-27 13:32 | NUR ---
PATIENT REPORT WAS GIVEN TO EMS TRANSPORTERS. ALSO TO THE NURSE IN [facility] VIA PHONE. PATIENT WAS ESCORTED OUT OF FACILITY BY EMS. GIBSON CATHETER INPLACE UPON DISCHARGE.
== END 2023-02-27 13:30 | disposition short-term general hospital (02) | DRG 291 ==
LOC: MEDICAL 15:16
PROVIDERS: Internal Medicine Interventional Cardiology; ADMIT Internal Medicine
DX: I13.0 Hypertensive heart and chronic kidney disease with heart failure and stage 1 through stage 4 chronic kidney disease, or unspecified chronic kidney disease (principal); I50.23 Acute on chronic systolic (congestive) heart failure; J96.21 Acute and chronic respiratory failure with hypoxia; I48.20 Chronic atrial fibrillation, unspecified; I42.9 Cardiomyopathy, unspecified; I34.0 Nonrheumatic mitral (valve) insufficiency; Z66 Do not resuscitate; J45.909 Unspecified asthma, uncomplicated; L82.1 Other seborrheic keratosis; M81.0 Age-related osteoporosis without current pathological fracture; F41.9 Anxiety disorder, unspecified; G47.00 Insomnia, unspecified; G47.33 Obstructive sleep apnea (adult) (pediatric); K21.9 Gastro-esophageal reflux disease without esophagitis; E03.9 Hypothyroidism, unspecified; E78.5 Hyperlipidemia, unspecified; G25.81 Restless legs syndrome; F32.A Depression, unspecified; I27.20 Pulmonary hypertension, unspecified; N18.9 Chronic kidney disease, unspecified; E87.6 Hypokalemia; Z96.653 Presence of artificial knee joint, bilateral; Z90.5 Acquired absence of kidney; Z85.528 Personal history of other malignant neoplasm of kidney; Z95.0 Presence of cardiac pacemaker; Z95.4 Presence of other heart-valve replacement; Z79.899 Other long term (current) drug therapy; Z79.82 Long term (current) use of aspirin; Z79.01 Long term (current) use of anticoagulants; Z79.890 Hormone replacement therapy; Z88.8 Allergy status to other drugs, medicaments and biological substances
CPT/HCPCS: G0378; G0379; J0330; J1940; J2250; J2704; J3010; J3480; J7030; J7040

== ENCOUNTER 2023-08-06 16:03 | Inpatient (IN) | payer MEDICARE, BC ==
[~2023-08-06] VITALS: Ht 160 cm; Wt 70.0 kg
[~2023-08-06 16:03] MED LIST changes: +ANORO IH; +CRANBERRY 4001 EACH PO; +ENTRESTO 24 MG1 EACH PO; +FLORAJEN A20 Billion PO; +IMDUR 30MG30 MG/TAB PO; +MACRODANTIN50 MG/CA1 PO; +NITROSTAT0.4 MG/TAB SL; +TRELEGY ELLIPT1 EAC1 IH; +TRELEGY ELLIPT1 EACH IH; +VITAMINC1000TA PO; +ZYLOPRIM 100MG100 MG PO
[2023-08-06 16:45] LABS: BASO # 0.1 K/mm3 (0.0-0.2); BASO % 0.8 % (0.0-2.0); EOS # 0.1 K/mm3 (0.0-0.7); EOS % 1.2 % (0.0-4.0); GRAN % 78.3 % (42.2-75.2); HEMOGLOBIN 10.1 g/dl (12.5-16.0); LYMPH % 9.6 % (20.0-51.0); MEAN CELL VOLUME 85 fl (80.0-100.0); MEAN CORPUSCULAR HEMOGLOBIN 25 pg (27-31); MEAN CORPUSCULAR HGB CONC 29 g/dl (33.0-37.0); MEAN PLATELET VOLUME 11.8 fl (7.4-10.4); MONO # 0.9 K/mm3 (0.1-0.6); MONO % 8.9 % (1.7-9.3); PLATELET COUNT 252 K/mm3 (130-400); RED BLOOD COUNT 4.03 M/mm3 (4.10-5.30); REDCELL DISTRIBUTION WIDTH-CV 19.9 % (11.5-14.5)
[2023-08-06 16:46] LABS: HEMATOCRIT 34.4 % (37.0-47.0)
[2023-08-06 17:02] LABS: BILIRUBIN,TOTAL 1.2 mg/dL (0.2-1.2); CALCIUM 9.8 mg/dL (8.4-10.2); CREATININE, serum 1.94 mg/dL (0.57-1.11); POTASSIUM 4.2 mmol/L (3.5-4.5); TOTAL PROTEIN 6.4 gm/dL (6.2-8.1)
[2023-08-06 17:06] LABS: ARTERIAL BLD GAS O2 SATURATION 99.3 % (92-100); ARTERIAL BLOOD GAS BASE EXCESS 2.2 (-2-2); ARTERIAL BLOOD GAS HCO3 25.8 meq/L (22-26); ARTERIAL BLOOD GAS PCO2 36.5 mmHg (35-45); ARTERIAL BLOOD GAS pH 7.47 (7.35-7.45)
[2023-08-06 17:12] LABS: INR 1.3 (0.8-3.0)
[2023-08-06 17:14] LABS: PARTIAL THROMBOPLASTIN TIME 32.5 SECONDS (26.0-37.0)
[2023-08-06 17:17] LABS: ARTERIAL BLOOD GAS PO2 165.6 mmHg (80-100)
[2023-08-06 17:44] LABS: COLLECTION METHOD CLEAN CATCH
[2023-08-06 17:52] LABS: URINE APPEARANCE CLEAR (CLEAR/HAZY); URINE BLOOD NEGATIVE (NEGATIVE); URINE COLOR YELLOW (YELLOW); URINE GLUCOSE NEGATIVE (NEGATIVE); URINE KETONE NEGATIVE (NEGATIVE); URINE NITRATE NEGATIVE (NEGATIVE); URINE PROTEIN(semi-quant) NEGATIVE (NEGATIVE)
[2023-08-06] MEDS ORDERED: cefTRIAXone 1 G in Water For Injection,Sterile 20 ML IV ONE (19:00)
[2023-08-06] MEDS ORDERED: Furosemide 100 MG/10 ML VIAL IV ONE (20:00)
[2023-08-06] MEDS ORDERED: methylPREDNISolone Sod Succ 125 MG/2 ML VIAL IV ONE (20:15)
[2023-08-06] MEDS ORDERED: Polyethylene Glycol 3350 17 GM PDS PO PRN (22:15)
[2023-08-06] MEDS ORDERED: Acetaminophen 500 MG TAB PO PRN (22:15)
[2023-08-06] MEDS ORDERED: Ondansetron 4 MG/2 ML VIAL IV PRN (22:15)
[2023-08-06] MEDS ORDERED: ISORDIL 10MG10 MG PO (22:54)
[2023-08-06] MEDS ORDERED: JARDIANCE10 (22:55)
[2023-08-06] MEDS ORDERED: ACIDOPHILIS (22:56)
[2023-08-06] MEDS ORDERED: IPRATROPIUM BROM3 M1 IH (22:56)
[2023-08-06] MEDS ORDERED: LEVOXYL0.1 MG PO (22:57)
[2023-08-06] MEDS ORDERED: NORCO 325 MG-7.1 TAB PO (23:00)
[2023-08-06] MEDS ORDERED: ZOFRAN ODT4 MG PO (23:01)
[2023-08-06] MEDS ORDERED: K-DUR20 MEQ PO (23:02)
[2023-08-06] MEDS ORDERED: SOAANZ40 MG PO (23:03)
[2023-08-07] VITALS (9 sets, daily range): BP systolic 110–145; BP diastolic 57–76; PULSE 66–91; TEMP 97.3–97.6
[2023-08-07] MEDS ORDERED: HYDROcodone/Acetaminophen 7.5-325 MG TAB PO PRN (01:30)
[2023-08-07] MEDS ORDERED: hydrOXYzine HCl 25 MG TAB PO SCH (01:35)
[2023-08-07] MEDS ORDERED: Apixaban 2.5 MG TAB PO SCH (01:35)
[2023-08-07] MEDS ORDERED: Dextrose 50% Water 25 GM/50 ML SYRINGE IV PRN (02:15)
[2023-08-07] MEDS ORDERED: Glucagon 1 MG VIAL IM PRN (02:15)
[2023-08-07] MEDS ORDERED: Dextrose (Glucose) 15 GM (4 x 3.75 GM) Chewable TABLET PACK PO PRN (02:15)
[2023-08-07] MEDS ORDERED: Albuterol/Ipratropium 3 MG-0.5 MG/3 ML Neb Soln IH PRN (03:00)
[2023-08-07] MEDS ORDERED: Furosemide 100 MG in NS 100 ML IV SCH (03:45)
[2023-08-07] MEDS ORDERED: metOLazone 2.5 MG TAB PO ONE (03:45)
[2023-08-07 06:36] LABS: HEMOGLOBIN 10.3 g/dl (12.5-16.0); MEAN CELL VOLUME 84 fl (80.0-100.0); MEAN CORPUSCULAR HEMOGLOBIN 25 pg (27-31); MEAN CORPUSCULAR HGB CONC 30 g/dl (33.0-37.0); MEAN PLATELET VOLUME 11.7 fl (7.4-10.4); PLATELET COUNT 251 K/mm3 (130-400); RED BLOOD COUNT 4.15 M/mm3 (4.10-5.30); REDCELL DISTRIBUTION WIDTH-CV 20.1 % (11.5-14.5)
[2023-08-07 06:42] LABS: HEMATOCRIT 34.9 % (37.0-47.0)
[2023-08-07 06:49] LABS: CALCIUM 9.7 mg/dL (8.4-10.2); CREATININE, serum 1.95 mg/dL (0.57-1.11); POTASSIUM 4.1 mmol/L (3.5-4.5)
[2023-08-07] MEDS ORDERED: Budesonide Neb Susp 0.5 MG/2 ML AMP IH SCH (07:00)
[2023-08-07 07:41] LABS: BAND 2 % (0-10); LYMPHOCYTE 3 % (20.0-51.0); METAMYELOCYTE 3 % (0-0); NEUTROPHILS 92 % (42.0-75.2)
[2023-08-07 07:43] LABS: ANISOCYTOSIS 3+; OVALOCYTES 1+; PLATELET ESTIMATE NORMAL (NORMAL)
[2023-08-07] MEDS ORDERED: predniSONE 20 MG TAB PO SCH (08:00)
[2023-08-07] MEDS ORDERED: Insulin Lispro (HumaLOG) SQ SCH (08:00)
[2023-08-07] MEDS ORDERED: Fluticasone/Umeclidinium/Vilanterol **** subs to Budesonide + Umeclid/Vilant IH SCH (09:00)
[2023-08-07] MEDS ORDERED: [UNRECOGNIZED DRUG - REMARK] PO SCH (09:00)
[2023-08-07] MEDS ORDERED: Bisoprolol 5 MG TAB PO SCH (09:00)
[2023-08-07] MEDS ORDERED: Allopurinol 100 MG TAB PO SCH (09:00)
[2023-08-07] MEDS ORDERED: Eye Formula MVI w/Minerals TABLET PO SCH (09:00)
[2023-08-07] MEDS ORDERED: Umeclidinium/Vilanterol 62.5-25 MCG INHALATION/INHALER IH SCH (09:00)
[2023-08-07] MEDS ORDERED: PARoxetine HCL 10 MG TABLET PO SCH (09:00)
[2023-08-07] MEDS ORDERED: Docusate Sodium 100 MG CAP PO SCH (09:00)
[2023-08-07] MEDS ORDERED: MAG-AL LIQUID 230 ML PO (11:25)
[2023-08-07] MEDS ORDERED: ARTIFICIAL TEAR15 M7 OP (11:26)
[2023-08-07] MEDS ORDERED: ESTRACE0.1 MG/GM VG (11:29)
[2023-08-07 15:00] LABS: CALCIUM 9.5 mg/dL (8.4-10.2); CREATININE, serum 2.02 mg/dL (0.57-1.11); POTASSIUM 3.9 mmol/L (3.5-4.5)
--- NOTE | 2023-08-07 15:34 | NUR ---
EDITH met with patient and son Manuelito ([phone]) at bedside to discuss discharge planning. Patient is a LTC resident at [facility] in [facility] since 04/2023. Patient sees Dr. Hay as her PCP and uses [facility]. Patient has a rollator walker, wheelchair, CPAP and oxygen on 3 LPM. Em Billings and Bladimir are DPOA for patient. Manuelito shared that they are meeting with cardiology today to discuss goals of care with patient. Plan at this time is for patient to return to [facility] at discharge. Discharge Plan: [facility].
--- NOTE | 2023-08-07 16:05 | NUR ---
Binder Chainstitch was contacted by Manuel with Cardiology who advised patient and family are leaning towards palliative/hospice. SW spoke with patient's family via speakerphone and set up a family meeting for 1500 with SW and Palliative care.
--- NOTE | 2023-08-07 19:07 | NUR ---
PATIENT RESTING IN BED WATCHING TV WITH NO FAMILY PRESENT WITH NO ACUTE DISTRESS NOTED. PATIENT ON 3 LITERS OF OXYGEN VIA NC. LASIX DRIP INFUSING INTO RIGHT AC WITH NO COMPLICATIONS NOTED. GIBSON CATH INTACT, PATENT, AND DRAINING CLEAR YELLOW URINE. PATIENT CARE ASSUMED FROM DEYANIRA AT THIS TIME. PATIENT DENIES ANY NEEDS. BED IN LOW POSITION WITH WHEELS LOCKED WITH RAILS UP X3 AND CALL LIGHT WITHIN REACH. BED ALARM ON.
--- NOTE | 2023-08-07 19:45 | NUR ---
PATIENT RESTING IN BED WATCHING TV WITH NO FAMILY PRESENT WITH NO ACUTE DISTRESS NOTED. PATIENT ALERT BUT CONFUSED. PATIENT ON 3 LITERS OF OXYGEN VIA NC. LASIX DRIP INFUSING INTO RIGHT AC WITH NO COMPLICATIONS NOTED. GIBSON CATH INTACT, PATENT, AND DRAINING CLEAR YELLOW URINE. ASSESSMENT COMPLETED AT THIS TIME. PATIENT TOLERATED WELL. PATIENT DENIES ANY NEEDS AT THIS TIME. BED IN LOW POSITION WITH WHEELS LOCKED WITH RAILS UP X3 AND CALL LIGHT WITHIN REACH. BED ALARM ON.
[2023-08-07] MEDS ORDERED: cefTRIAXone 1 G in Water For Injection,Sterile 10 ML IV SCH (20:00)
--- NOTE | 2023-08-07 21:37 | NUR ---
PATIENT RESTING IN BED WATCHING TV AT THIS TIME WITH NO ACUTE DISTRESS NOTED. PATIENT ON 3 LITERS OF OXYGEN VIA NC. LASIX DRIP INFUSING INTO RIGHT AC WITH NO ACUTE DISTRESS NOTED. MEDICATION ADMINISTRATION COMPLETED AT THIS TIME. PATIENT TOLERATED WELL. PATIENT DENIES ANY NEEDS AT THIS TIME. BED IN LOW POSITION WITH WHEELS LOCKED WITH RAILS UP X3 AND CALL LIGHT WITHIN REACH. BED ALARM ON.
[2023-08-08] VITALS (9 sets, daily range): BP systolic 107–131; BP diastolic 65–731; PULSE 61–97; TEMP 97.4–98.3
[2023-08-08 06:56] LABS: BASO % 0.1 % (0.0-2.0); GRAN # 8.6 K/mm3 (1.4-6.5); GRAN % 83.8 % (42.2-75.2); LYMPH # 0.8 K/mm3 (1.2-3.4); LYMPH % 7.5 % (20.0-51.0); MEAN CELL VOLUME 83 fl (80.0-100.0); MEAN CORPUSCULAR HEMOGLOBIN 25 pg (27-31); MEAN CORPUSCULAR HGB CONC 30 g/dl (33.0-37.0); MEAN PLATELET VOLUME 11.5 fl (7.4-10.4); MONO # 0.8 K/mm3 (0.1-0.6); PLATELET COUNT 220 K/mm3 (130-400); RED BLOOD COUNT 4.04 M/mm3 (4.10-5.30); REDCELL DISTRIBUTION WIDTH-CV 19.7 % (11.5-14.5)
[2023-08-08 06:58] LABS: HEMATOCRIT 33.7 % (37.0-47.0)
[2023-08-08 07:05] LABS: CALCIUM 8.6 mg/dL (8.4-10.2); CREATININE, serum 2.02 mg/dL (0.57-1.11); POTASSIUM 3.1 mmol/L (3.5-4.5)
[2023-08-08] MEDS ORDERED: [UNRECOGNIZED DRUG - REMARK] MC SCH (07:45)
--- NOTE | 2023-08-08 08:13 | NUR ---
Patient was laying down in bed, awake and comfortable, when this student nurse entered room. This student nurse obtained vitals and performed assessment on patient. Patient does not complain of pain at this time. This student nurse assisted patient with putting on a brief per patient request. Lezama cath in place and patent. IV lasix running at 11 ml/hr through 20g R AC IV. Patient has no concerns at this time. Call light within reach. Patient instructed to use call light if needing assistance.
[2023-08-08] MEDS ORDERED: Benzonatate 100 MG CAP PO PRN (10:15)
--- NOTE | 2023-08-08 11:16 | NUR ---
Assessment complete. Alert and oriented to name, . Pt is able to state she is [place] but unable to state what facility she is in or who the president is. Conversation otherwise appropriate. Up in chair at this time. 1 assist with walker. SOA noted with exertion. O2 3L/NC. IV lasix infusing as ordered. Denies pain or needs.
[2023-08-08] MEDS ORDERED: [UNRECOGNIZED DRUG - REMARK] PO SCH (13:30)
[2023-08-08] MEDS ORDERED: Amoxicillin 500 MG CAP PO SCH (13:33)
[2023-08-08] MEDS ORDERED: *Potassium Replacement Protocol MC SCH (14:00)
--- NOTE | 2023-08-08 16:15 | NUR ---
Maternal Fetal Physician contacted Sangeeta at [facility] and faxed clinical updates. EDITH advised a meeting with family will occur at 1500. EDITH and RN-Cammie GUZMAN met with patient and her two sons, Manuelito and Bladimir to discuss hospice services. EDITH also provided Medicare.gov list of hospice agencies. Manuelito spoke with Sangeeta about [facility] and they would like a referral sent to [facility]. Manuelito plans to be here for rounding so he be aware of medications changes made. EDITH contacted Mckenna with [facility] and faxed referral. Discharge Plan: [facility] with [facility]
--- NOTE | 2023-08-08 16:25 | NUR ---
Palliative Care/Family Meeting with pt Nan, son Manuelito, son Hiram- with boilermaker pipe fitter for the [employer], and Evelia GOMEZ. Current Code status is DNR. Dx HF. Dr. Wasserman had reviewed pt's status in AM during rounding. Sons were interested in talks about Hospice. Pt stated she is willing to pursue Hospice at this time. Evelia SHARMA reviewed options for care. Pt stated she is in agreement for Hospice with the facility she came from. Manuelito voiced questions concerning Home Hospice, SNF Hospice and the Hospice House. Manuelito also had questions concerning discharge medications. Dr. Wasserman will be informed of his need to review discharge medications during tomorrows discharge. Nan took part in the discussion and was in agreement with all of the above decisions. Answered all of their questions and they voiced understanding.
--- NOTE | 2023-08-08 18:34 | NUR ---
PATIENT RESTING IN BD WITH TV ON EATING DINNER WITH NO FAMILY PRESENT WITH NO ACUTE DISTRESS NOTED. PATIENT ON 3 LITERS OF OXYGEN VIA NC. LASIX DRIP INFUSING INTO RIGHT AC WITH NO COMPPLICATIONS NOTED. GIBSON CATH INTACT, PATENT, AND DRAINING CLEAR YELLOW URINE. PATIENT REQUESTED TRAY BE REMOVED AND DENIED ANY OTHER NEEDS. PATIENT CARE ASSUMED FROM GINGER AT THIS TIME. BED IN LOW POSITION WITH WHEELS LOCKED WITH RAILS UP X3 AND CALL LIGHT WITHIN REACH. BED ALARM ON.
--- NOTE | 2023-08-08 18:41 | NUR ---
Pt sitting up in bed, just finished supper. Converstation appropriate throughout day but still only orient to self and . Very pleasant. O2 3L/NC. VSS- see flowsheet. Assist x1 to chair using rollator walker. Denies pain. Pallative care consult done this afternoon and plan is for patient to d/c tomorrow to [facility].
--- NOTE | 2023-08-08 21:05 | NUR ---
PATIENT RESTING IN BED WATCHING TV WITH NO ACUTE DISTRESS NOTED. PATIENT ON 3 LITERS OF OXYGEN VIA NC. LASIX DRIP INFUSING INTO RIGHT AC WITH NO COMPLICATIONS NOTED. MEDICATION ADMINISTRATION AND ASSESSMENT COMPLETED AT THIS TIME. PATIENT TOLERATED WELL. PATIENT REQUESTED HELP TO GET UP TO BRUSH TEETH. PATIENT ASSISTED UP WITH ROLLATOR AND AMBULATED TO SINK. PATIENT BRUSHED TEETH. BED STRAIGHTENED UP. PATIENT HELPED TO AMBULATE BACK TO BE AND HELPED TO POSITION FOR COMFORT. PATIENT DENIES ANY OTHER NEEDS. BED IN LOW POSITION WITH WHEELS LOCKED WITH RAILS UP X3 AND CALL LIGHT WITHIN REACH. BED ALARM ON.
[2023-08-09 00:01] VITALS: BP 111/59; PULSE 92; TEMP 98
[2023-08-09 00:05] VITALS: BP_SYST 111
[2023-08-09 04:05] VITALS: BP_SYST 127
[2023-08-09 04:08] VITALS: BP 127/71; PULSE 96; TEMP 97.5
[2023-08-09 07:19] VITALS: BP 129/75; PULSE 91; TEMP 97.3
--- NOTE | 2023-08-09 07:24 | NUR ---
Patient was awake and alert in bed when this student nurse entered room for morning assessment and vitals. Patient stated that she wanted to take a shower after breakfast. Continuous Lasix drip was discontinued on shift change. 20 g R AC IV is clean, dry, intact, and patent. Patient does not complain of pain at this time. No other concerns from patient at this time.
[2023-08-09] MEDS ORDERED: Potassium Bicarbonate/Citrate 20 MEQ Effervescent TAB PO ONE (07:45)
--- NOTE | 2023-08-09 08:28 | NUR ---
Patient alert and oriented x2. Shift assessment complete. Denies increase in pain at this time. Left upper arm has edema noted. Redness noted to bottom and heels, areas are blanching. Patient repositioned with cushion under side to relieve pressure. Heels floated. Lezama intact at this time, Lasix gtt discontinued this morning. Stable on 3L via nasal cannula. Call light within reach, bed alarm on. All needs met at this time.
[2023-08-09 08:49] VITALS: BP_SYST 129
[2023-08-09] MEDS ORDERED: AMOXICILLIN 50500 MG PO (09:29)
[2023-08-09] MEDS ORDERED: BUMEX2 MG PO (09:30)
[2023-08-09] MEDS ORDERED: PREDNISONE20 MG PO (09:30)
[2023-08-09] MEDS ORDERED: ATIVAN 1MG T1 MG/TAB PO (09:34)
[2023-08-09] MEDS ORDERED: ROXANOL 20MG20 MG/ML SL (09:34)
--- NOTE | 2023-08-09 09:46 | NUR ---
Initial visit: Patient thanked Hop Separator for stopping in and offering God's blessings and letting Clejanice know she is in Hop Separator's prayers. Mervinjanice's son was present and thanked Hop Separator for looking in on her.
--- NOTE | 2023-08-09 10:00 | NUR ---
This student nurse removed Lezama Catheter per discharge order. Patient tolerated well. Hallie care provided. This student nurse removed R AC IV per discharge order. Catheter tip intact. Patient tolerated well. Site cleaned and dressed with 2x2 gauze and coban wrap. This student nurse removed patient from insurance sales agent per discharge order.
--- NOTE | 2023-08-09 11:30 | NUR ---
Patient discharged back to [facility] with hospice care. IV discontinued to right AC by nursing home physician with no complications. Telemetry off. Lezama catheter discontinued by nursing home physician, tip intact. Patient tolerated well. Transfer paperwork sent with [facility] staff including medication list for son/DPOA per request. Report called to [facility] staff, receiving RN busy at this time. Name and callback number left with reason for calling. Patient escorted out by [facility] staff and nursing home physician via wheelchair.
--- NOTE | 2023-08-09 13:08 | NUR ---
Rubber Cutter And Shape Carver attended clinical rounds with the team and patient is ready for discharge today back to [facility]. EDITH contacted Mckenna with [facility] and he advised they can accept patient. EDITH contacted Sangeeta at [facility] and scheduled pickers material handlers time for 1100. EDITH provided transport time to his son, Manuelito. EDITH faxed discharge orders to [facility] and [facility]. Discharge Plan: [facility]
== END 2023-08-09 11:20 | disposition hospice, inpatient (51) | DRG 291 ==
LOC: COL.ER 16:03 → MEDICAL 20:40
PROVIDERS: Internal Medicine; Nurse Practitioner; ADMIT Internal Medicine
PROC: 5A09457 Assistance with Respiratory Ventilation, 24-96 Consecutive Hours, Continuous Positive Airway Pressure (ICD-10-PCS; principal; 2023-08-07)
DX: I13.0 Hypertensive heart and chronic kidney disease with heart failure and stage 1 through stage 4 chronic kidney disease, or unspecified chronic kidney disease (principal); I50.43 Acute on chronic combined systolic (congestive) and diastolic (congestive) heart failure; I48.20 Chronic atrial fibrillation, unspecified; J96.11 Chronic respiratory failure with hypoxia; Q60.0 Renal agenesis, unilateral; N39.0 Urinary tract infection, site not specified; N18.4 Chronic kidney disease, stage 4 (severe); I42.9 Cardiomyopathy, unspecified; Z66 Do not resuscitate; Z51.5 Encounter for palliative care; J45.909 Unspecified asthma, uncomplicated; G47.33 Obstructive sleep apnea (adult) (pediatric); G25.81 Restless legs syndrome; K21.9 Gastro-esophageal reflux disease without esophagitis; E03.9 Hypothyroidism, unspecified; Z96.653 Presence of artificial knee joint, bilateral; F32.A Depression, unspecified; E78.5 Hyperlipidemia, unspecified; I34.0 Nonrheumatic mitral (valve) insufficiency; M10.072 Idiopathic gout, left ankle and foot; E87.6 Hypokalemia; F03.90 Unspecified dementia, unspecified severity, without behavioral disturbance, psychotic disturbance, mood disturbance, and anxiety; R29.6 Repeated falls; Z85.528 Personal history of other malignant neoplasm of kidney; Z90.5 Acquired absence of kidney; Z99.81 Dependence on supplemental oxygen; Z90.710 Acquired absence of both cervix and uterus; Z95.0 Presence of cardiac pacemaker; Z79.01 Long term (current) use of anticoagulants; Z79.899 Other long term (current) drug therapy; Z79.82 Long term (current) use of aspirin; Z79.890 Hormone replacement therapy; Z88.8 Allergy status to other drugs, medicaments and biological substances; Z99.89 Dependence on other enabling machines and devices; Z95.2 Presence of prosthetic heart valve; Z23 Encounter for immunization
CPT/HCPCS: J0696; J1940; J2930; J7512